=== PATIENT | male | born 1940 | race Caucasian/White ===

== ENCOUNTER 2017-03-05 10:29 | Inpatient (IN) ==
[2017-03-05] MEDS: Nicotine 21 MG PATCH.TD24 TD SCH (21:15)
[2017-03-06] MEDS: *HR* Enoxaparin 40 MG/0.4 ML SYRINGE SQ SCH (05:32)
[2017-03-06 05:46] LABS: INR 1.1; Prothrombin Time 11.9 Seconds (9.4-12.1)
[2017-03-06 05:47] LABS: Activated Partial Thrombo Time 32.6 Seconds (26.0-36.0)
[2017-03-06 05:49] LABS: Basophils % 0.3 %; Eosinophils % 0.2 %; Hemoglobin 15.3 g/dL (12.9-16.9); Immature Granulocytes % 0.5 % (0-4); Lymphocytes # 1.4 K/mcL (0.6-4.6); Lymphocytes % 10.6 %; Mean Corpuscular HGB Conc 34.8 g/dL (31.6-35.5); Mean Corpuscular Hemoglobin 28.1 pg (28.0-33.3); Mean Corpuscular Volume 80.7 fL (83.0-100.0); Mean Platelet Volume 10.9 fL (9.4-12.4); Monocytes # 0.8 K/mcL (0.0-1.3); Monocytes % 6.2 %; Neutrophils # 10.5 K/mcL (1.6-8.9); Platelet Count 148 K/mcL (140-400); Red Blood Count 5.45 M/mcL (4.19-5.50); Red Cell Distribution Width 14.1 % (11.5-14.5); Segmented Neutrophils % 82.2 %
[2017-03-06 05:52] LABS: BUN/Creatinine Ratio 19 (6-26); Blood Urea Nitrogen 21 mg/dL (8-26); Calcium 9.3 mg/dL (8.6-10.8); Carbon Dioxide 23 mEq/L (19-29); Chloride 105 mEq/L (98-109); Glucose 109 mg/dL (70-99); Osmolality,Calculated 290 (280-300); Potassium 4.2 mEq/L (3.5-4.5); Sodium 138 mEq/L (136-145); eGFR For African Americans > 60 (> 60); eGFR For Non-African Americans > 60 (> 60)
[2017-03-06] MEDS: NIFEdipine XL (24 HR) 30 MG TAB.ER.24 PO SCH (08:12)
[2017-03-06] MEDS: Aspirin 325 MG TABLET PO SCH (08:13)
[2017-03-06] MEDS: Nicotine 21 MG PATCH.TD24 TD SCH (08:17)
[2017-03-06] MEDS ORDERED: Nicotine 21 MG PATCH.TD24 TD SCH (09:00)
--- NOTE | 2017-03-06 11:52 | Internal Med History&Physical ---
Date of Encounter: 03/05/17 Time of Encounter: 11:50 Internal Medicine - H&P: HPI Chief complaint: Patient had ischemic CVA with left-sided weakness. Admitted From: Hospital to Hospital Transfer Plans for Post Hospital Care: Home History of present illness: Mr. Oswald is a 77 year old male Past Med Surg Social Fam HX - Past Medical History Medical history: hypertension Psychiatric history: no psych history - Social History Smoking Status: Current every day smoker Smokeless Tobacco Status: No Alcohol use: occasionally Drug use: none Internal Medicine - H&P: Meds Aspirin [Lo-Dose Aspirin EC] 81 mg PO DAILY 12/15/16 [History] hydrALAZINE [HydrALAZINE] 25 mg PO Q8HR #30 tablet 12/16/16 [Rx] Allergies hydrochlorothiazide Allergy (Verified 12/15/16 23:14) Fatigued dizzy All Systems PM: A 10-system review of systems was performed and is negative for pertinent findings except as documented above in the HPI. - Constitutional Vitals: Temp Pulse Resp BP Pulse Ox 98.6 F 96 16 190/81 96 03/06/17 07:00 03/06/17 07:00 03/06/17 07:00 03/06/17 07:00 03/06/17 07:00 - Head Head exam: Present: atraumatic, normal inspection, normocephalic - Neck Neck exam general surgery: Present: supple, trachea midline. Absent: lymphadenopathy - Respiratory Respiratory exam: Present: CTAB. Absent: accessory muscle use, rales, rhonchi, wheezes - Cardiovascular Cardiovascular exam: Present: RRR, +S1, +S2. Absent: diastolic murmur, gallop, rubs, systolic murmur - Neurological Exam Neurological exam: Present: abnormal gait, altered, CN II-XII intact, oriented X3, no focal deficits. Absent: pronater drift, facial droop, speech deficit Additional comments: Patient has virtually a flaccid left arm. He was able to stand for a minute unsupported. He is gazing to the right has trouble with focus on the left side. He has an obvious facial droop on the left side. She PT OT and TR evaluations. Internal Med - H&P Results - Labs CBC & Chem 7: 03/06/17 05:30 03/06/17 05:30 Labs: Short CBC 03/06/17 Range/Units 05:30 WBC 12.8 H (4.3-11.1) K/mcL Hgb 15.3 (12.9-16.9) g/dL Hct 44.0 (37.5-50.1) % Plt Count 148 (140-400) K/mcL Neutrophils # 10.5 H (1.6-8.9) K/mcL BMP 03/06/17 05:30 Sodium 138 Potassium 4.2 Chloride 105 Carbon Dioxide 23 BUN 21 Creatinine 1.10 Glucose 109 H Calcium 9.3
[2017-03-06] MEDS: MOM Conc 10 ML UD.LIQ PO PRN (19:38)
[2017-03-07] MEDS: *HR* Enoxaparin 40 MG/0.4 ML SYRINGE SQ SCH (05:56)
[2017-03-07] MEDS: Nicotine 21 MG PATCH.TD24 TD SCH (10:33)
[2017-03-07] MEDS: Aspirin 325 MG TABLET PO SCH (10:35)
[2017-03-07] MEDS: NIFEdipine XL (24 HR) 30 MG TAB.ER.24 PO SCH (11:46)
[2017-03-07] MEDS: Acetaminophen 325 MG TABLET PO PRN (14:56)
[2017-03-08] MEDS: *HR* Enoxaparin 40 MG/0.4 ML SYRINGE SQ SCH (05:11)
[2017-03-08] MEDS: Nicotine 21 MG PATCH.TD24 TD SCH (09:08)
[2017-03-08] MEDS: NIFEdipine XL (24 HR) 30 MG TAB.ER.24 PO SCH (09:08)
[2017-03-08] MEDS: Aspirin 325 MG TABLET PO SCH (09:08)
--- NOTE | 2017-03-08 09:16 | Internal Med Progress Note ---
Date of Encounter: 03/08/17 Time of Encounter: 09:14 - Assessment and plan (1) CVA (cerebral vascular accident) Current Visit: Yes Status: Acute Assessment and plan: 2 days after the patient arrived at this facility, staff noted worsening symptoms of this left-sided being flaccid. They have also noticed a change in his level of alertness. I reviewed the MRI from [facility]. It did show acute lacunar right basal ganglia. CT was repeated and showed an extension to the right temporal parietal lobe as interpreted by the radiologist. I discussed the finding with the and family members. I offered them the option to be transferred to a tertiary care facility for any neurological consultation. After lengthy discussion and consideration, because of the patient's age and risk factor, they opted to continue with comfort care measures only. They do not want any aggressive intervention. They want the patient to stay here and to continue with PT OT. Qualifiers: CVA mechanism: occlusion Precerebral and cerebral artery: posterior cerebral artery Laterality of affected vessel: right Qualified Code(s): I63.531 - Cerebral infarction due to unspecified occlusion or stenosis of right posterior cerebral artery (2) HTN (hypertension) Current Visit: Yes Status: Chronic Assessment and plan: BP 179/78 this morning. Qualifiers: Hypertension type: unspecified secondary hypertension Qualified Code(s): I15.9 - Secondary hypertension, unspecified; I15 - Secondary hypertension - Time Spent With Patient 25 - 35 minutes - Subjective Interval history: Feeling better today. Same left-sided weakness. No headache. No shortness of breath. No chest pain. No nausea vomiting abdominal pain. - Constitutional Vitals: Temp Pulse Resp BP Pulse Ox 98.1 F 79 16 178/98 96 03/08/17 06:58 03/08/17 06:58 03/08/17 06:58 03/08/17 07:07 03/08/17 06:58 General appearance: Present: A&O X 3, pleasant, no acute distress, answers questions appropriately - ENT Additional comments: Left sided facial droop noted - Respiratory Respiratory exam: Present: CTAB. Absent: accessory muscle use, rales, rhonchi, wheezes - Cardiovascular Cardiovascular exam: Present: RRR, +S1, +S2. Absent: diastolic murmur, gallop, rubs, systolic murmur - GI/Abdominal GI/Abdominal exam: Present: normal bowel sounds, soft, no peritoneal signs. Absent: distended, tenderness - Extremities Exam Extremities exam: Present: warm, radial pulses palpable and symetrical. Absent : calf tenderness, cyanotic, pedal edema - Expanded Neurological Exam Patient oriented to: Present: person, place Neuro motor strength exam: LUE: 2/1, RUE: 5, LLE: 2/1, RLE: 5 Internal Medicine: Result - Labs CBC & Chem 7: 03/06/17 05:30 03/06/17 05:30 - ABG Interpretation ABG results: PT/INR, D-dimer PT 11.9 Seconds (9.4-12.1) 03/06/17 05:30 - Impressions Impressions Head CT 03/07/17 09:00 IMPRESSION: 1. There are larger areas of poor parikh-white differentiation in the right middle cerebral artery vascular distribution since the previous MRI of the brain on 03/03/2017. These areas primarily include the right parietal lobe, right temporal lobe, and right insula. 2. There are evolving areas of encephalomalacia, corresponding to the acute infarcts noted on the previous MRI, involving the right basal ganglia, right parietal lobe, and posterior right periventricular white matter. 3. No evidence of acute intracranial hemorrhage. 4. 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 Results discussed with Dr. Don at 10:14 a.m. on 03/07/2017. D/ / 03/07/2017 10:42:05 Orlin Encinas MD / Rosalee Childress Interpreting Provider: Orlin Encinas MD Consult Discharge Plan - Plan Referrals: Edwina Lopez CNP [Primary Care Provider] -
[2017-03-08] MEDS: Artificial Tears SOLN 15 ML BOTTLE LEFT EYE SCH ×3 (12:45→19:36)
[2017-03-09] MEDS: *HR* Enoxaparin 40 MG/0.4 ML SYRINGE SQ SCH (05:49)
--- NOTE | 2017-03-09 08:15 | Internal Med Progress Note ---
Date of Encounter: 03/09/17 Time of Encounter: 08:13 - Assessment and plan (1) CVA (cerebral vascular accident) Current Visit: Yes Status: Acute Assessment and plan: Patient's working with therapy but there has been a progression of ischemic changes in the parietal temporal areas. Along with a lot of chronic changes. Qualifiers: CVA mechanism: occlusion Precerebral and cerebral artery: posterior cerebral artery Laterality of affected vessel: right Qualified Code(s): I63.531 - Cerebral infarction due to unspecified occlusion or stenosis of right posterior cerebral artery - Time Spent With Patient less than 15 minutes - Subjective Interval history: Patient's awake responsive. Speech is clear. The report of the CT noted changes since original MRI. Patient has severe malaise C and acute microvascular changes. There is a progression though in the parietotemporal areas. Prognosis rather poor considering they called the changes severe in terms of pre-existing chronic changes - Constitutional Vitals: Temp Pulse Resp BP Pulse Ox 98.7 F 81 18 198/130 96 03/09/17 07:38 03/09/17 07:38 03/09/17 07:38 03/09/17 07:38 03/09/17 07:38 General appearance: Present: A&O X 3, pleasant, no acute distress, answers questions appropriately - Head Head exam: Present: atraumatic, normal inspection, normocephalic - Neck Neck exam general surgery: Present: supple, trachea midline. Absent: lymphadenopathy - Respiratory Respiratory exam: Present: CTAB. Absent: accessory muscle use, rales, rhonchi, wheezes - Cardiovascular Cardiovascular exam: Present: RRR, +S1, +S2. Absent: diastolic murmur, gallop, rubs, systolic murmur Internal Medicine: Result - Labs CBC & Chem 7: 03/06/17 05:30 03/06/17 05:30 Labs: Lab is stable - ABG Interpretation ABG results: PT/INR, D-dimer PT 11.9 Seconds (9.4-12.1) 03/06/17 05:30 Consult Discharge Plan - Plan Referrals: Edwina Lopez, [employer]OOFER [Primary Care Provider] -
[2017-03-09] MEDS: NIFEdipine XL (24 HR) 30 MG TAB.ER.24 PO SCH (09:30)
[2017-03-09] MEDS: Aspirin 325 MG TABLET PO SCH (09:30)
[2017-03-09] MEDS: Artificial Tears SOLN 15 ML BOTTLE LEFT EYE SCH ×4 (09:30→19:20)
[2017-03-09] MEDS: Nicotine 21 MG PATCH.TD24 TD SCH (09:30)
[2017-03-10] MEDS: *HR* Enoxaparin 40 MG/0.4 ML SYRINGE SQ SCH (05:11)
[2017-03-10 05:39] LABS: Basophils % 0.4 %; Eosinophils # 0.2 K/mcL (0.0-0.6); Eosinophils % 1.6 %; Hematocrit 43.4 % (37.5-50.1); Immature Granulocytes % 0.3 % (0-4); Lymphocytes # 2.3 K/mcL (0.6-4.6); Lymphocytes % 20.3 %; Mean Corpuscular HGB Conc 34.6 g/dL (31.6-35.5); Mean Corpuscular Hemoglobin 28.1 pg (28.0-33.3); Mean Corpuscular Volume 81.3 fL (83.0-100.0); Monocytes # 1.1 K/mcL (0.0-1.3); Monocytes % 9.5 %; Platelet Count 150 K/mcL (140-400); Red Blood Count 5.34 M/mcL (4.19-5.50); Red Cell Distribution Width 14.1 % (11.5-14.5); Segmented Neutrophils % 67.9 %
[2017-03-10 05:40] LABS: INR 1.1; Prothrombin Time 12.1 Seconds (9.4-12.1)
[2017-03-10 05:42] LABS: Activated Partial Thrombo Time 36.4 Seconds (26.0-36.0)
[2017-03-10 05:44] LABS: Basophils # 0.1 K/mcL (0.0-0.2); Neutrophils # 7.7 K/mcL (1.6-8.9)
[2017-03-10 05:48] LABS: BUN/Creatinine Ratio 25 (6-26); Blood Urea Nitrogen 29 mg/dL (8-26); Calcium 9.6 mg/dL (8.6-10.8); Carbon Dioxide 23 mEq/L (19-29); Chloride 106 mEq/L (98-109); Glucose 96 mg/dL (70-99); Osmolality,Calculated 292 (280-300); Sodium 138 mEq/L (136-145); eGFR For African Americans > 60 (> 60); eGFR For Non-African Americans > 60 (> 60)
[2017-03-10] MEDS: NIFEdipine XL (24 HR) 30 MG TAB.ER.24 PO SCH (09:37)
[2017-03-10] MEDS: Acetaminophen 325 MG TABLET PO PRN (09:38)
[2017-03-10] MEDS: Aspirin 325 MG TABLET PO SCH (09:38)
[2017-03-10] MEDS: Nicotine 21 MG PATCH.TD24 TD SCH (09:39)
[2017-03-10] MEDS: Artificial Tears SOLN 15 ML BOTTLE LEFT EYE SCH ×4 (09:40→20:07)
--- NOTE | 2017-03-10 13:33 | Internal Med Progress Note ---
Date of Encounter: 03/10/17 Time of Encounter: 13:31 - Assessment and plan (1) CVA (cerebral vascular accident) Current Visit: Yes Status: Acute Assessment and plan: CVA with a lot of microvascular changes and what looks like an old CVA. There has been an extension since his original MRI. Qualifiers: CVA mechanism: occlusion Precerebral and cerebral artery: posterior cerebral artery Laterality of affected vessel: right Qualified Code(s): I63.531 - Cerebral infarction due to unspecified occlusion or stenosis of right posterior cerebral artery - Time Spent With Patient less than 15 minutes - Subjective Interval history: Patient denies cooperating when awake. Although he is sleepy good bit of time. It seems that we need to have scheduled rest periods. He does well if he has a rest period and then goes to a different type of therapy. I am also going to start him on Provigil. I am sure that the sleepiness is dependent upon his lack of cerebral circulation. He also has high diastolic blood pressures in the a.m. only. They seem to equal loudest the day goes on. We will start some Procardia 10 mg when diastolics above 90. - Constitutional Vitals: Temp Pulse Resp BP Pulse Ox 97.6 F 66 16 188/102 95 03/10/17 07:00 03/10/17 07:00 03/10/17 07:00 03/10/17 07:00 03/10/17 07:00 General appearance: Present: A&O X 3, pleasant, no acute distress, answers questions appropriately - Head Head exam: Present: atraumatic, normal inspection, normocephalic - Neck Neck exam general surgery: Present: supple, trachea midline. Absent: lymphadenopathy - Respiratory Respiratory exam: Present: CTAB. Absent: accessory muscle use, rales, rhonchi, wheezes - Cardiovascular Cardiovascular exam: Present: RRR, +S1, +S2. Absent: diastolic murmur, gallop, rubs, systolic murmur - Neurological Exam Neurological exam: Present: abnormal gait, CN II-XII intact, oriented X3, no focal deficits. Absent: pronater drift, facial droop (Patient has left facial droop left hemiplegia. Left upper extremity is almost flaccid. He has trouble turning to the left side and scan in the visual field there.), speech deficit Internal Medicine: Result - Labs CBC & Chem 7: 03/10/17 05:25 03/10/17 05:25 Labs: Short CBC 03/10/17 Range/Units 05:25 WBC 11.4 H (4.3-11.1) K/mcL Hgb 15.0 (12.9-16.9) g/dL Hct 43.4 (37.5-50.1) % Plt Count 150 (140-400) K/mcL Neutrophils # 7.7 (1.6-8.9) K/mcL BMP 03/10/17 05:25 Sodium 138 Potassium 5.0 H Chloride 106 Carbon Dioxide 23 BUN 29 H Creatinine 1.14 Glucose 96 Calcium 9.6 Lab looks stable - ABG Interpretation ABG results: PT/INR, D-dimer PT 12.1 Seconds (9.4-12.1) 03/10/17 05:25 Consult Discharge Plan - Plan Referrals: Edwina Lopez, SENIOR MECHANICAL DESIGN ENGINEER [Primary Care Provider] -
[2017-03-10] MEDS: NIFEdipine 10 MG CAPSULE PO SCH ×2 (17:58→20:08)
[2017-03-11] MEDS: *HR* Enoxaparin 40 MG/0.4 ML SYRINGE SQ SCH (05:25)
[2017-03-11] MEDS: NIFEdipine 10 MG CAPSULE PO SCH ×3 (05:27→17:37)
[2017-03-11] MEDS: Aspirin 325 MG TABLET PO SCH (08:52)
[2017-03-11] MEDS: Nicotine 21 MG PATCH.TD24 TD SCH (08:53)
[2017-03-11] MEDS: Artificial Tears SOLN 15 ML BOTTLE LEFT EYE SCH ×4 (08:53→19:25)
--- NOTE | 2017-03-11 12:19 | Internal Med Progress Note ---
Date of Encounter: 03/11/17 Time of Encounter: 12:16 - Assessment and plan (1) CVA (cerebral vascular accident) Current Visit: Yes Status: Acute Assessment and plan: Left-sided weakness seems to be improving with continuous PTOT. Working on safety, transfer, balance. Progressing with ADL task, increased impulsivity noted. Lower upper extremity strengthening, transfers. Left-sided awareness. s I. Qualifiers: CVA mechanism: occlusion Precerebral and cerebral artery: posterior cerebral artery Laterality of affected vessel: right Qualified Code(s): I63.531 - Cerebral infarction due to unspecified occlusion or stenosis of right posterior cerebral artery (2) HTN (hypertension) Current Visit: Yes Status: Chronic Assessment and plan: BP 179/78 this morning. Qualifiers: Hypertension type: unspecified secondary hypertension Qualified Code(s): I15.9 - Secondary hypertension, unspecified; I15 - Secondary hypertension - Time Spent With Patient less than 15 minutes - Subjective Interval history: Feeling better today. Same left-sided weakness. No headache. No shortness of breath. No chest pain. No nausea vomiting abdominal pain.Progressing - Constitutional Vitals: Temp Pulse Resp BP Pulse Ox 98.3 F 69 14 170/79 97 03/11/17 07:00 03/11/17 07:00 03/11/17 07:00 03/11/17 07:00 03/11/17 07:00 General appearance: Present: A&O X 3, pleasant, no acute distress, answers questions appropriately - Respiratory Respiratory exam: Present: CTAB. Absent: accessory muscle use, rales, rhonchi, wheezes - Cardiovascular Cardiovascular exam: Present: RRR, +S1, +S2. Absent: diastolic murmur, gallop, rubs, systolic murmur - GI/Abdominal GI/Abdominal exam: Present: normal bowel sounds, soft, no peritoneal signs. Absent: distended, tenderness - Extremities Exam Extremities exam: Present: warm, radial pulses palpable and symetrical. Absent : calf tenderness, cyanotic, pedal edema - Expanded Neurological Exam Patient oriented to: Present: person, place, time (Same left-sided weakness. Facial droop noted) Internal Medicine: Result - Labs CBC & Chem 7: 03/10/17 05:25 03/10/17 05:25 - ABG Interpretation ABG results: PT/INR, D-dimer PT 12.1 Seconds (9.4-12.1) 03/10/17 05:25 Consult Discharge Plan - Plan Referrals: Edwina Lopez, COUNSELING CENTER MANAGER [Primary Care Provider] -
[2017-03-12] MEDS: NIFEdipine 10 MG CAPSULE PO SCH ×4 (00:03→18:12)
[2017-03-12] MEDS: *HR* Enoxaparin 40 MG/0.4 ML SYRINGE SQ SCH (04:59)
[2017-03-12] MEDS: Acetaminophen 325 MG TABLET PO PRN (05:02)
[2017-03-12] MEDS ORDERED: cloNIDine HCl 0.1 MG TABLET PO ONE (05:20)
[2017-03-12] MEDS: Artificial Tears SOLN 15 ML BOTTLE LEFT EYE SCH ×4 (07:30→20:03)
[2017-03-12] MEDS: Aspirin 325 MG TABLET PO SCH (08:00)
[2017-03-12] MEDS: Nicotine 21 MG PATCH.TD24 TD SCH (08:00)
--- NOTE | 2017-03-12 13:40 | Internal Med Progress Note ---
Date of Encounter: 03/12/17 Time of Encounter: 13:38 - Assessment and plan (1) CVA (cerebral vascular accident) Current Visit: Yes Status: Acute Assessment and plan: Ocular PT OT TR and speech. Qualifiers: CVA mechanism: occlusion Precerebral and cerebral artery: posterior cerebral artery Laterality of affected vessel: right Qualified Code(s): I63.531 - Cerebral infarction due to unspecified occlusion or stenosis of right posterior cerebral artery - Time Spent With Patient less than 15 minutes - Subjective Interval history: Patient's support system reports him not sleeping well at night. states if he takes a half a melatonin 3 mg he sleeps well. But we will see Will follow him. Patient is getting his Provigil and is pretty alert when I talked to him. He answers appropriately. He still has left upper and lower extremity hemiplegia. Both are working with his arm and leg and also cognitive. Biggest problem skin him to look past the left midline - Constitutional Vitals: Temp Pulse Resp BP Pulse Ox 97.9 F 80 16 130/84 96 03/12/17 06:56 03/12/17 06:56 03/12/17 06:56 03/12/17 06:56 03/12/17 06:56 General appearance: Present: A&O X 3, pleasant, no acute distress, answers questions appropriately - Head Head exam: Present: atraumatic, normal inspection, normocephalic - Neck Neck exam general surgery: Present: supple, trachea midline. Absent: lymphadenopathy - Respiratory Respiratory exam: Present: CTAB. Absent: accessory muscle use, rales, rhonchi, wheezes - Neurological Exam Neurological exam: Present: abnormal gait, CN II-XII intact, motor sensory deficit, oriented X3, no focal deficits. Absent: pronater drift, facial droop, speech deficit Additional comments: The patient has left sided paresis. Flaccid actually the upper extremity also in the lower. They are attempting walking brace. He needs maximal assist to advance. Overall he is progressing cognitively seems intact Internal Medicine: Result - Labs CBC & Chem 7: 03/10/17 05:25 03/10/17 05:25 Labs: Lab appears stable - ABG Interpretation ABG results: PT/INR, D-dimer PT 12.1 Seconds (9.4-12.1) 06/12/17 05:25 Consult Discharge Plan - Plan Referrals: Edwina Lopez, TAVARES [Primary Care Provider] -
--- NOTE | 2017-03-12 14:33 | Physcial Medicine-Consult Note ---
Date of Encounter: 03/12/17 Time of Encounter: 14:21 Physical Medicine - AP (1) CVA (cerebral vascular accident) Status: Acute Assessment and plan: 1. Rehab: Mr. Oswald is suffering from left hemiplegia with left neglect. In addition to his left hemiplegia, he also has difficulty with coordinating movement in the right lower limb. He suffers from significant cognitive impairment. He will continue with intensive PT/OT/ST/TR to address gait, safety , ADLs, transfers and cognition. He is also suffering from fatigue and somnolence during the day, so he will continue with provigil. Nursing reports that he has not been sleeping at night. He will begin with ambien at . Estimated length of stay 4 weeks. Code(s): I63.9 - Cerebral infarction, unspecified SNOMED Code(s): 126359753 Physical Medicine - HPI - Data of Consult Consult date: 03/12/17 Requesting Physician: Lam Overton DO Primary Care Provider: Edwina Lopez CNP - Consult Narrative Reason for consult: CVA History of present illness: Mr. Oswald is a 77 year old male who presented to [facility] on 03/02/17 with complaints of acute onset of left sided weakness and facial droop. His brain MRI revealed acute lacunar infarcts, involving the right basal ganglia , right centrum semiovale and right parietal and occipital subcortical white matter. Patient was stabilized and subsequently transferred for inpatient rehabilitation. CC: Lam Overton DO Past Med Surg Social Fam HX - Past Medical History Medical history: hypertension Psychiatric history: no psych history - Social History Smoking Status: Current every day smoker Smokeless Tobacco Status: No Alcohol use: occasionally Drug use: none Current living situation: Home - Independent, With Family Activity Level: Independent ambulation, Very active Medications and Allergies Aspirin [Lo-Dose Aspirin EC] 81 mg PO DAILY 12/15/16 [History] hydrALAZINE [HydrALAZINE] 25 mg PO Q8HR #30 tablet 12/16/16 [Rx] Allergies hydrochlorothiazide Allergy (Verified 12/15/16 23:14) Fatigued dizzy - Constitutional Constitutional: Present: daytime sleepiness, lethargy - Cardiovascular Cardiovascular: Absent: chest pain, diaphoresis, dyspnea - Respiratory Respiratory: Absent: cough, dyspnea - Gastrointestinal Gastrointestinal: Present: change in bowel habits. Absent: abdominal pain - Genitourinary Genitourinary: urinary urgency - Musculoskeletal Musculoskeletal: Present: muscle weakness, numbness - Neurological Neurological: Present: abnormal gait, confusion, focal weakness, numbness - Psychiatric Psychiatric: Present: abnormal sleep pattern Physical Medicine - Exam - Constitutional Vitals: Temp Pulse Resp BP Pulse Ox 97.9 F 80 16 130/84 96 03/12/17 06:56 03/12/17 06:56 03/12/17 06:56 03/12/17 06:56 03/12/17 06:56 - Head Additional comments: Patient has a left facial droop. - Respiratory Respiratory exam: Present: CTAB - Cardiovascular Cardiovascular exam: Present: RRR - GI/Abdominal GI/Abdominal exam: Present: normal bowel sounds, soft. Absent: tenderness - Extremities Exam Extremities exam: Absent: calf tenderness - Neurological Exam Neurological exam: Present: alert Additional comments: Patient has a left neglect. He is able to attend to the left side with cues. Head will rotate to the left, he is unable to visually track to the left. Right upper and lower motor strength is 5/5. Left upper limb is flaccid. Left lower limb motor strength reveals hip adduction 2/4, hip abduction 2/5, trace KE. Tone is Maninder 1 in the left upper and lower limb. No clonus. No pain with PROM of the left upper limb, no pain with palpation of the AC joint or arm. No calf pain, no erythema or edema on exam. Physical Medicine - Results - Labs CBC & Chem 7: 03/10/17 05:25 03/10/17 05:25 - Impressions ITS Impressions Head CT 03/07/17 09:00 IMPRESSION: 1. There are larger areas of poor parikh-white differentiation in the right middle cerebral artery vascular distribution since the previous MRI of the brain on 03/03/2017. These areas primarily include the right parietal lobe, right temporal lobe, and right insula. 2. There are evolving areas of encephalomalacia, corresponding to the acute infarcts noted on the previous MRI, involving the right basal ganglia, right parietal lobe, and posterior right periventricular white matter. 3. No evidence of acute intracranial hemorrhage. 4. 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 Results discussed with Dr. Don at 10:14 a.m. on 03/07/2017. D/ / 03/07/2017 10:42:05 Orlin Encinas MD / Rosalee Childress Interpreting Provider: Orlin Encinas MD Consult Discharge Plan - Plan Referrals: Edwina Lopez, TAVARES [Primary Care Provider] -
--- NOTE | 2017-03-12 16:18 | Psychological Evaluation ---
Date of Encounter: 03/12/17 Time of Encounter: 11:30 History of Present Illness History of present illness: Mr. Oswald is a 77 year old male admitted to [facility] for inpatient rehabilitation services following an ischemic stroke with resultant left-side weakness. Past Medical History Medical history: Significant for HTN. - Psychiatric History Additional Psychiatric History: Mr. Oswald stated that he saw a counselor/therapist once at the request of a a girlfriend. Mr. Martinez stated that his girlfriend at the time had accused him of being an alcoholic and had requested that he see a therapist. The therapist reportedly told Mr. Oswald that he was not an alcoholic. There is no history of psychiatric or mental health treatment. There is no history of suicidal ideation, intention, plan or past attempt. Home Medications and Allergies Aspirin [Lo-Dose Aspirin EC] 81 mg PO DAILY 12/15/16 [History] hydrALAZINE [HydrALAZINE] 25 mg PO Q8HR #30 tablet 12/16/16 [Rx] Allergies hydrochlorothiazide Allergy (Verified 12/15/16 23:14) Fatigued dizzy Social History - Social History Social History: Mr. Oswald and his fourth have been for 30 years. He has 3 children (two daughters and one son) but had initially stated that he has "5" children. He is a member of the [employer] and spend his leisure time riding motorcycles (He rode a 3-wheeled trike). His social support system consists of his and a friend (Henrry). Prior to his stroke, Mr. Oswald was active and was refurbishing an old house. - Tobacco Use Smoking Status: Current every day smoker - Alcohol Use Alcohol Use: occasionally (Mr. Oswald described himself as a "heavy drinker" in the past but stated that he now drinks beer socially. He typically drinks "one bottle of beer" daily. ) - Drug Use Drug Use: none Cognitive/Emotional Assessment - Cognitive Ability Additional Findings: Mr. Oswald was alert, attentive and oriented for person and place. He gave the date as March 14 but knew the year. His speech was fluent but he spoke in a soft , low tone of voice. He tended to answer questions slowly without elaboration and to look to the right. (He has significant left neglect). He performed within the normal range on a measure of immediate attention, sentence repetition , confrontational naming, mental arithmetic, verbal reasoning, social judgment and auditory comprehension. He scored within the mildly-moderately impaired range on a measure of delayed verbal recall. He had problems with retrieval of new information but his performance improved with category cueing. Mr. Oswald did not appear aware of his cognitive strengths or deficits. - Emotional Status Additional Findings: Mr. Oswald was pleasant and cooperative. He reported that his mood has "improved immensely". He presented with flat affect. Mood was somber. He denied any pain initially but when his asked him again, he reported that he has been having some low back pain. Mr. Oswald did not display signs of low frustration, irritability or sadness. 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 Procedures - Session Time Session Start Time: 11:30 Session Stop Time: 12:00
[2017-03-13] MEDS: *HR* Enoxaparin 40 MG/0.4 ML SYRINGE SQ SCH (05:03)
[2017-03-13] MEDS: Nicotine 21 MG PATCH.TD24 TD SCH (08:19)
[2017-03-13] MEDS: Artificial Tears SOLN 15 ML BOTTLE LEFT EYE SCH ×4 (08:19→20:15)
[2017-03-13] MEDS: Aspirin 325 MG TABLET PO SCH (08:19)
--- NOTE | 2017-03-13 15:22 | Internal Med Progress Note ---
Date of Encounter: 03/13/17 Time of Encounter: 15:20 - Assessment and plan (1) CVA (cerebral vascular accident) Current Visit: Yes Status: Acute Assessment and plan: Acute with all modalities of therapy Qualifiers: CVA mechanism: occlusion Precerebral and cerebral artery: posterior cerebral artery Laterality of affected vessel: right Qualified Code(s): I63.531 - Cerebral infarction due to unspecified occlusion or stenosis of right posterior cerebral artery - Time Spent With Patient less than 15 minutes - Subjective Interval history: Mr. Nance working with all of therapists. states he sleeping little better. Resting overall not much significant improvement physically with doing well - Constitutional Vitals: Temp Pulse Resp BP Pulse Ox 98.4 F 67 16 177/91 96 03/13/17 07:06 03/13/17 07:06 03/13/17 07:06 03/13/17 07:06 03/13/17 07:06 General appearance: Present: A&O X 3, pleasant, no acute distress, answers questions appropriately - Head Head exam: Present: atraumatic, normocephalic - Neck Neck exam general surgery: Present: supple, trachea midline. Absent: lymphadenopathy - Respiratory Respiratory exam: Present: CTAB. Absent: accessory muscle use, rales, rhonchi, wheezes - Cardiovascular Cardiovascular exam: Present: RRR, +S1, +S2. Absent: diastolic murmur, gallop, rubs, systolic murmur Internal Medicine: Result - Labs CBC & Chem 7: 03/10/17 05:25 03/10/17 05:25 Labs: Lab is good - ABG Interpretation ABG results: PT/INR, D-dimer PT 12.1 Seconds (9.4-12.1) 03/10/17 05:25 Consult Discharge Plan - Plan Referrals: Edwina Lopez, PROFESSOR OF MEDICINE [Primary Care Provider] -
[2017-03-14] MEDS: *HR* Enoxaparin 40 MG/0.4 ML SYRINGE SQ SCH (04:44)
[2017-03-14] MEDS: Artificial Tears SOLN 15 ML BOTTLE LEFT EYE SCH ×4 (08:51→21:05)
[2017-03-14] MEDS: Aspirin 325 MG TABLET PO SCH (08:51)
[2017-03-14] MEDS: Nicotine 21 MG PATCH.TD24 TD SCH (08:51)
[2017-03-14] MEDS ORDERED: NIFEdipine 10 MG CAPSULE PO ONE (12:05)
[2017-03-14] MEDS ORDERED: NIFEdipine XL (24 HR) 60 MG TAB.ER.24 PO SCH ×2 (12:15→21:00)
--- NOTE | 2017-03-14 13:52 | Internal Med Progress Note ---
Date of Encounter: 03/14/17 Time of Encounter: 13:50 - Assessment and plan (1) CVA (cerebral vascular accident) Current Visit: Yes Status: Acute Assessment and plan: Patient seen PT OT TR and speech Qualifiers: CVA mechanism: occlusion Precerebral and cerebral artery: posterior cerebral artery Laterality of affected vessel: right Qualified Code(s): I63.531 - Cerebral infarction due to unspecified occlusion or stenosis of right posterior cerebral artery - Time Spent With Patient less than 15 minutes - Subjective Interval history: Patient continues to have high blood pressures in the a.m. when I checked the Procardia schedule I found out that the pharmacy had inadvertently DC'd the medication. Said not been getting either this 60 Exsel or the 10 in the morning if diastolic pressures were elevated. This is all been corrected now. - Constitutional Vitals: Temp Pulse Resp BP Pulse Ox 98.7 F 97 13 135/79 97 03/14/17 07:00 03/14/17 12:20 03/14/17 07:00 03/14/17 12:20 03/14/17 07:00 General appearance: Present: A&O X 3, pleasant, no acute distress, answers questions appropriately - Head Head exam: Present: atraumatic, normal inspection, normocephalic - Neck Neck exam general surgery: Present: supple, trachea midline. Absent: lymphadenopathy - Respiratory Respiratory exam: Present: CTAB. Absent: accessory muscle use, rales, rhonchi, wheezes - Cardiovascular Cardiovascular exam: Present: RRR, +S1, +S2. Absent: diastolic murmur, gallop, rubs, systolic murmur - GI/Abdominal GI/Abdominal exam: Present: normal bowel sounds, soft, no peritoneal signs. Absent: distended, tenderness - Neurological Exam Neurological exam: Present: abnormal gait, CN II-XII intact, oriented X3, no focal deficits. Absent: pronater drift, facial droop, speech deficit Additional comments: Patient still has left facial droop along with a left hemiplegia. Internal Medicine: Result - Labs CBC & Chem 7: 03/10/17 05:25 03/10/17 05:25 Labs: Labs 5 - ABG Interpretation ABG results: PT/INR, D-dimer PT 12.1 Seconds (9.4-12.1) 03/10/17 05:25 Consult Discharge Plan - Plan Referrals: Edwina Lopez, TAVARES [Primary Care Provider] -
[2017-03-14] MEDS: NIFEdipine XL (24 HR) 30 MG TAB.ER.24 PO SCH (21:07)
[2017-03-15] MEDS: *HR* Enoxaparin 40 MG/0.4 ML SYRINGE SQ SCH (04:54)
[2017-03-15] MEDS: Nicotine 21 MG PATCH.TD24 TD SCH (08:28)
[2017-03-15] MEDS: Aspirin 325 MG TABLET PO SCH (08:28)
[2017-03-15] MEDS: Artificial Tears SOLN 15 ML BOTTLE LEFT EYE SCH ×4 (08:29→20:46)
--- NOTE | 2017-03-15 09:01 | Internal Med Progress Note ---
Date of Encounter: 03/15/17 Time of Encounter: 08:59 - Assessment and plan (1) CVA (cerebral vascular accident) Current Visit: Yes Status: Acute Assessment and plan: left hemiplegia with left neglect. Also has difficulty with coordinating movement in the right lower limb. He suffers from significant cognitive impairment. He will continue with intensive PT/OT/ST/TR to address gait, safety , ADLs, transfers and cognition. He is also suffering from fatigue and somnolence during the day, so he will continue with provigil. Qualifiers: CVA mechanism: occlusion Precerebral and cerebral artery: posterior cerebral artery Laterality of affected vessel: right Qualified Code(s): I63.531 - Cerebral infarction due to unspecified occlusion or stenosis of right posterior cerebral artery (2) HTN (hypertension) Current Visit: Yes Status: Chronic Qualifiers: Hypertension type: unspecified secondary hypertension Qualified Code(s): I15.9 - Secondary hypertension, unspecified; I15 - Secondary hypertension - Subjective Interval history: Feeling better today. Sleepy in the past 2-3 days. Same left-sided weakness. No headache. No shortness of breath. No chest pain. No nausea vomiting abdominal pain.Progressing - Constitutional Vitals: Temp Pulse Resp BP Pulse Ox 98.3 F 83 18 112/75 94 03/15/17 08:00 03/15/17 08:00 03/15/17 08:00 03/15/17 08:00 03/15/17 08:00 General appearance: Present: A&O X 3, pleasant, no acute distress, answers questions appropriately - Respiratory Respiratory exam: Present: CTAB. Absent: accessory muscle use, rales, rhonchi, wheezes - Cardiovascular Cardiovascular exam: Present: RRR, +S1, +S2. Absent: diastolic murmur, gallop, rubs, systolic murmur - GI/Abdominal GI/Abdominal exam: Present: normal bowel sounds, soft, no peritoneal signs. Absent: distended, tenderness - Neurological Exam Additional comments: Left-sided neglect. Right sided paralysis Internal Medicine: Result - Labs CBC & Chem 7: 03/10/17 05:25 03/10/17 05:25 - ABG Interpretation ABG results: PT/INR, D-dimer PT 12.1 Seconds (9.4-12.1) 03/10/17 05:25 Consult Discharge Plan - Plan Referrals: Edwina Lopez, TAVARES [Primary Care Provider] -
[2017-03-15] MEDS: NIFEdipine XL (24 HR) 30 MG TAB.ER.24 PO SCH (20:45)
[2017-03-16] MEDS: *HR* Enoxaparin 40 MG/0.4 ML SYRINGE SQ SCH (06:00)
[2017-03-16] MEDS: Nicotine 21 MG PATCH.TD24 TD SCH (09:27)
[2017-03-16] MEDS: Artificial Tears SOLN 15 ML BOTTLE LEFT EYE SCH ×5 (09:28→20:56)
[2017-03-16] MEDS: Aspirin 325 MG TABLET PO SCH (09:28)
[2017-03-16 14:37] LABS: Bilirubin,Urine Negative (Negative); Clarity,Urine Cloudy (Clear); Color,Urine Yellow (Yellow); Glucose,Urine (UA) Normal (Normal)
[2017-03-16 14:38] LABS: Blood,Urine Moderate (Negative); Ketones,Urine Negative (Negative); Leukocyte Esterase,Urine Large (Negative); Nitrite,Urine Positive (Negative); PH,Urine 5.5 pH Units (5.0-8.0); Protein,Urine 100 mg/dL (Neg-Trace); Specific Gravity,Urine 1.015 (1.010-1.025)
[2017-03-16 14:39] LABS: Bacteria,Urine Many per hpf (None-Few); RBC,Urine 50-100 per hpf (0-3); WBC,Urine TNTC per hpf (0-3)
[2017-03-16] MEDS: NIFEdipine XL (24 HR) 30 MG TAB.ER.24 PO SCH (20:52)
[2017-03-17 05:42] LABS: INR 1.1; Prothrombin Time 12.3 Seconds (9.4-12.1)
[2017-03-17 05:43] LABS: Basophils % 0.3 %; Eosinophils # 0.1 K/mcL (0.0-0.6); Eosinophils % 0.8 %; Hematocrit 40.8 % (37.5-50.1); Hemoglobin 14.4 g/dL (12.9-16.9); Immature Granulocytes % 0.5 % (0-4); Lymphocytes # 1.1 K/mcL (0.6-4.6); Lymphocytes % 9.2 %; Mean Corpuscular HGB Conc 35.3 g/dL (31.6-35.5); Mean Corpuscular Hemoglobin 28.3 pg (28.0-33.3); Mean Corpuscular Volume 80.3 fL (83.0-100.0); Mean Platelet Volume 10.9 fL (9.4-12.4); Monocytes # 1.1 K/mcL (0.0-1.3); Monocytes % 9.4 %; Neutrophils # 9.1 K/mcL (1.6-8.9); Platelet Count 195 K/mcL (140-400); Red Blood Count 5.08 M/mcL (4.19-5.50); Red Cell Distribution Width 13.8 % (11.5-14.5); Segmented Neutrophils % 79.8 %
[2017-03-17 05:45] LABS: Activated Partial Thrombo Time 32.9 Seconds (26.0-36.0)
[2017-03-17 05:51] LABS: BUN/Creatinine Ratio 20 (6-26); Blood Urea Nitrogen 21 mg/dL (8-26); Calcium 9.4 mg/dL (8.6-10.8); Carbon Dioxide 24 mEq/L (19-29); Chloride 101 mEq/L (98-109); Glucose 103 mg/dL (70-99); Osmolality,Calculated 283 (280-300); Potassium 4.8 mEq/L (3.5-4.5); Sodium 135 mEq/L (136-145); eGFR For African Americans > 60 (> 60); eGFR For Non-African Americans > 60 (> 60)
[2017-03-17] MEDS: *HR* Enoxaparin 40 MG/0.4 ML SYRINGE SQ SCH (06:34)
[2017-03-17] MEDS: Nicotine 21 MG PATCH.TD24 TD SCH (08:55)
[2017-03-17] MEDS: Aspirin 325 MG TABLET PO SCH (08:55)
[2017-03-17] MEDS: Artificial Tears SOLN 15 ML BOTTLE LEFT EYE SCH ×4 (08:56→20:57)
--- NOTE | 2017-03-17 14:19 | Internal Med Progress Note ---
Date of Encounter: 03/17/17 Time of Encounter: 14:18 - Assessment and plan (1) CVA (cerebral vascular accident) Current Visit: Yes Status: Acute Qualifiers: CVA mechanism: occlusion Precerebral and cerebral artery: posterior cerebral artery Laterality of affected vessel: right Qualified Code(s): I63.531 - Cerebral infarction due to unspecified occlusion or stenosis of right posterior cerebral artery - Subjective Interval history: Patient continues to have high blood pressures in the a.m. when I checked the [employer] schedule I found out that the pharmacy had inadvertently DC'd the medication. Said not been getting either this 60 Exsel or the 10 in the morning if diastolic pressures were elevated. This is all been corrected now. - Constitutional Vitals: Temp Pulse Resp BP Pulse Ox 99.3 F 88 18 132/69 96 03/17/17 08:26 03/17/17 08:26 03/17/17 08:26 03/17/17 08:26 03/17/17 08:26 General appearance: Present: A&O X 3, pleasant, no acute distress, answers questions appropriately - Head Head exam: Present: atraumatic, normal inspection, normocephalic - Neck Neck exam general surgery: Present: supple, trachea midline. Absent: lymphadenopathy - Respiratory Respiratory exam: Present: CTAB. Absent: accessory muscle use, rales, rhonchi, wheezes - Cardiovascular Cardiovascular exam: Present: RRR, +S1, +S2. Absent: diastolic murmur, gallop, rubs, systolic murmur - Neurological Exam Neurological exam: Present: CN II-XII intact, motor sensory deficit, oriented X3 , no focal deficits. Absent: pronater drift, facial droop, speech deficit Additional comments: Left facial droop and left flaccid paralysis. Internal Medicine: Result - Labs CBC & Chem 7: 03/17/17 05:25 03/17/17 05:25 Labs: Short CBC 03/17/17 Range/Units 05:25 WBC 11.4 H (4.3-11.1) K/mcL Hgb 14.4 (12.9-16.9) g/dL Hct 40.8 (37.5-50.1) % Plt Count 195 (140-400) K/mcL Neutrophils # 9.1 H (1.6-8.9) K/mcL BMP 03/17/17 05:25 Sodium 135 L Potassium 4.8 H Chloride 101 Carbon Dioxide 24 BUN 21 Creatinine 1.03 Glucose 103 H Calcium 9.4 Urine 03/16/17 Range/Units 14:25 Urine Color Yellow (Yellow) Urine Clarity Cloudy A (Clear) Urine pH 5.5 (5.0-8.0) pH Units Ur Specific [place] 1.015 (1.010-1.025) Urine Protein 100 H (Neg-Trace) mg/dL Urine Glucose (UA) Normal (Normal) mg/dL - ABG Interpretation ABG results: PT/INR, D-dimer PT 12.3 Seconds (9.4-12.1) H 03/17/17 05:25 Consult Discharge Plan - Plan Referrals: Edwina Lopez, TAVARES [Primary Care Provider] -
[2017-03-17] MEDS: NIFEdipine XL (24 HR) 30 MG TAB.ER.24 PO SCH (20:51)
[2017-03-18] MEDS: *HR* Enoxaparin 40 MG/0.4 ML SYRINGE SQ SCH (05:10)
[2017-03-18] MEDS: Aspirin 325 MG TABLET PO SCH (09:07)
[2017-03-18] MEDS: Artificial Tears SOLN 15 ML BOTTLE LEFT EYE SCH ×4 (09:07→20:06)
[2017-03-18] MEDS: Nicotine 21 MG PATCH.TD24 TD SCH (09:07)
--- NOTE | 2017-03-18 13:44 | Internal Med Progress Note ---
Date of Encounter: 03/18/17 Time of Encounter: 13:42 - Assessment and plan (1) CVA (cerebral vascular accident) Current Visit: Yes Status: Acute Assessment and plan: As I said patient looks better is not as sleepy and responding to therapy very well Qualifiers: CVA mechanism: occlusion Precerebral and cerebral artery: posterior cerebral artery Laterality of affected vessel: right Qualified Code(s): I63.531 - Cerebral infarction due to unspecified occlusion or stenosis of right posterior cerebral artery - Time Spent With Patient less than 15 minutes - Subjective Interval history: Blood pressures are much better controlled I think the patient looks good he is not a sleepy and responding much better to therapy - Constitutional Vitals: Temp Pulse Resp BP Pulse Ox 99.5 F 88 18 122/88 97 03/18/17 08:34 03/18/17 08:34 03/18/17 08:34 03/18/17 08:34 03/18/17 08:34 General appearance: Present: A&O X 3, pleasant, no acute distress, answers questions appropriately - Head Head exam: Present: atraumatic, normal inspection, normocephalic - Neck Neck exam general surgery: Present: supple, trachea midline. Absent: lymphadenopathy - Respiratory Respiratory exam: Present: CTAB. Absent: accessory muscle use, rales, rhonchi, wheezes - Cardiovascular Cardiovascular exam: Present: RRR, +S1, +S2. Absent: diastolic murmur, gallop, rubs, systolic murmur Internal Medicine: Result - Labs CBC & Chem 7: 03/17/17 05:25 03/17/17 05:25 Labs: Lab state - ABG Interpretation ABG results: PT/INR, D-dimer PT 12.3 Seconds (9.4-12.1) H 03/17/17 05:25 Consult Discharge Plan - Plan Referrals: Edwina Lopez [employer]PERVISOR [employer] [Primary Care Provider] -
[2017-03-18] MEDS: NIFEdipine XL (24 HR) 30 MG TAB.ER.24 PO SCH (19:58)
[2017-03-19] MEDS: *HR* Enoxaparin 40 MG/0.4 ML SYRINGE SQ SCH (05:28)
[2017-03-19] MEDS: MOM Conc 10 ML UD.LIQ PO PRN (09:04)
[2017-03-19] MEDS: Aspirin 325 MG TABLET PO SCH (09:04)
[2017-03-19] MEDS: Nicotine 21 MG PATCH.TD24 TD SCH (09:05)
[2017-03-19] MEDS: Acetaminophen 325 MG TABLET PO PRN (09:05)
[2017-03-19] MEDS: Artificial Tears SOLN 15 ML BOTTLE LEFT EYE SCH ×4 (09:05→20:25)
[2017-03-19] MEDS: NIFEdipine XL (24 HR) 30 MG TAB.ER.24 PO SCH (20:25)
[2017-03-20] MEDS: Nicotine 21 MG PATCH.TD24 TD SCH (08:40)
[2017-03-20] MEDS: Artificial Tears SOLN 15 ML BOTTLE LEFT EYE SCH ×4 (08:41→21:19)
[2017-03-20] MEDS: Aspirin 325 MG TABLET PO SCH (08:41)
[2017-03-20] MEDS: NIFEdipine XL (24 HR) 30 MG TAB.ER.24 PO SCH (21:19)
[2017-03-20] MEDS: Baclofen 10 MG TABLET PO SCH (21:19)
[2017-03-21] MEDS: *HR* Enoxaparin 40 MG/0.4 ML SYRINGE SQ SCH (06:12)
[2017-03-21] MEDS: Nicotine 21 MG PATCH.TD24 TD SCH (08:23)
[2017-03-21] MEDS: Baclofen 10 MG TABLET PO SCH ×3 (08:23→21:19)
[2017-03-21] MEDS: Aspirin 325 MG TABLET PO SCH (08:23)
[2017-03-21] MEDS: Acetaminophen 325 MG TABLET PO PRN (08:30)
[2017-03-21] MEDS: Artificial Tears SOLN 15 ML BOTTLE LEFT EYE SCH ×4 (08:34→21:19)
--- NOTE | 2017-03-21 14:27 | Internal Med Progress Note ---
Date of Encounter: 03/21/17 Time of Encounter: 14:25 - Assessment and plan (1) CVA (cerebral vascular accident) Current Visit: Yes Status: Acute Assessment and plan: No working with her therapist today showing probable Qualifiers: CVA mechanism: occlusion Precerebral and cerebral artery: posterior cerebral artery Laterality of affected vessel: right Qualified Code(s): I63.531 - Cerebral infarction due to unspecified occlusion or stenosis of right posterior cerebral artery - Time Spent With Patient less than 15 minutes - Subjective Interval history: Blood pressures are much better controlled I think the patient looks good he is not a sleepy and responding much better to therapy. Patient is finally shown progress. He has some movement in his left leg in addition to that he is willing himself around the unit he is looking to the left moring generally improved - Constitutional Vitals: Temp Pulse Resp BP Pulse Ox 98.2 F 69 16 135/75 93 03/21/17 06:48 03/21/17 06:48 03/21/17 06:48 03/21/17 06:48 03/21/17 06:48 General appearance: Present: A&O X 3, pleasant, no acute distress, answers questions appropriately - Head Head exam: Present: atraumatic, normocephalic - Neck Neck exam general surgery: Present: supple, trachea midline. Absent: lymphadenopathy - Respiratory Respiratory exam: Present: CTAB. Absent: accessory muscle use, rales, rhonchi, wheezes - Cardiovascular Cardiovascular exam: Present: RRR, +S1, +S2. Absent: diastolic murmur, gallop, rubs, systolic murmur Internal Medicine: Result - Labs CBC & Chem 7: 03/17/17 05:25 03/17/17 05:25 Labs: Lab good - ABG Interpretation ABG results: PT/INR, D-dimer PT 12.3 Seconds (9.4-12.1) H 03/17/17 05:25 Consult Discharge Plan - Plan Referrals: Edwina Lopez CNP [Primary Care Provider] -
[2017-03-21] MEDS: NIFEdipine XL (24 HR) 30 MG TAB.ER.24 PO SCH (21:19)
[2017-03-22] MEDS: *HR* Enoxaparin 40 MG/0.4 ML SYRINGE SQ SCH (06:02)
[2017-03-22] MEDS: Artificial Tears SOLN 15 ML BOTTLE LEFT EYE SCH ×4 (08:26→20:08)
[2017-03-22] MEDS: Baclofen 10 MG TABLET PO SCH ×3 (08:32→20:06)
[2017-03-22] MEDS: Nicotine 21 MG PATCH.TD24 TD SCH (08:33)
[2017-03-22] MEDS: Aspirin 325 MG TABLET PO SCH (08:33)
--- NOTE | 2017-03-22 11:56 | Internal Med Progress Note ---
Date of Encounter: 03/22/17 Time of Encounter: 11:54 - Assessment and plan (1) CVA (cerebral vascular accident) Current Visit: Yes Status: Acute Assessment and plan: Asians working with everyone and actually really showing improvement with this past week Qualifiers: CVA mechanism: occlusion Precerebral and cerebral artery: posterior cerebral artery Laterality of affected vessel: right Qualified Code(s): I63.531 - Cerebral infarction due to unspecified occlusion or stenosis of right posterior cerebral artery - Time Spent With Patient less than 15 minutes - Subjective Interval history: Agents resting quietly easily awakened and denied needing anything at this time. He did warn yesterday we will monitor - Constitutional Vitals: Temp Pulse Resp BP Pulse Ox 98.3 F 78 16 189/97 95 03/22/17 06:52 03/22/17 06:52 03/22/17 06:52 03/22/17 06:52 03/22/17 06:52 General appearance: Present: A&O X 3, pleasant, no acute distress, answers questions appropriately - Head Head exam: Present: atraumatic, normal inspection, normocephalic - Neck Neck exam general surgery: Present: supple, trachea midline. Absent: lymphadenopathy - Respiratory Respiratory exam: Present: CTAB. Absent: accessory muscle use, rales, rhonchi, wheezes - Cardiovascular Cardiovascular exam: Present: RRR, +S1, +S2. Absent: diastolic murmur, gallop, rubs, systolic murmur Internal Medicine: Result - Labs CBC & Chem 7: 03/17/17 05:25 03/17/17 05:25 Labs: Lab is stable - ABG Interpretation ABG results: PT/INR, D-dimer PT 12.3 Seconds (9.4-12.1) H 03/17/17 05:25 Consult Discharge Plan - Plan Referrals: Edwina Lopez, BODY CLEANER [Primary Care Provider] -
[2017-03-22] MEDS ORDERED: NIFEdipine 10 MG CAPSULE PO PRN (12:18)
[2017-03-22] MEDS: NIFEdipine XL (24 HR) 30 MG TAB.ER.24 PO SCH (20:04)
[2017-03-23] MEDS: *HR* Enoxaparin 40 MG/0.4 ML SYRINGE SQ SCH (04:18)
[2017-03-23] MEDS: Baclofen 10 MG TABLET PO SCH ×3 (08:14→20:26)
[2017-03-23] MEDS: Nicotine 21 MG PATCH.TD24 TD SCH (08:14)
[2017-03-23] MEDS: Aspirin 325 MG TABLET PO SCH (08:15)
[2017-03-23] MEDS: Artificial Tears SOLN 15 ML BOTTLE LEFT EYE SCH ×4 (09:44→20:30)
--- NOTE | 2017-03-23 11:20 | Internal Med Progress Note ---
Date of Encounter: 03/23/17 Time of Encounter: 11:18 - Assessment and plan (1) CVA (cerebral vascular accident) Current Visit: Yes Status: Acute Assessment and plan: He is here for CVA with speech PT OT and TR. Qualifiers: CVA mechanism: occlusion Precerebral and cerebral artery: posterior cerebral artery Laterality of affected vessel: right Qualified Code(s): I63.531 - Cerebral infarction due to unspecified occlusion or stenosis of right posterior cerebral artery - Time Spent With Patient less than 15 minutes - Subjective Interval history: Mr. Oswald is doing very well. Attitudes better movements better opts patient is better a referral please with his current problem - Constitutional Vitals: Temp Pulse Resp BP Pulse Ox 97.9 F 61 16 151/83 98 03/23/17 07:00 03/23/17 07:00 03/23/17 07:00 03/23/17 07:00 03/23/17 07:00 General appearance: Present: A&O X 3, pleasant, no acute distress, answers questions appropriately - Head Head exam: Present: atraumatic, normocephalic - Respiratory Respiratory exam: Present: CTAB. Absent: accessory muscle use, rales, rhonchi, wheezes - Cardiovascular Cardiovascular exam: Present: RRR, +S1, +S2. Absent: diastolic murmur, gallop, rubs, systolic murmur Internal Medicine: Result - Labs CBC & Chem 7: 03/17/17 05:25 03/17/17 05:25 Labs: Lab is stable - ABG Interpretation ABG results: PT/INR, D-dimer PT 12.3 Seconds (9.4-12.1) H 03/17/17 05:25 Consult Discharge Plan - Plan Referrals: Edwina Lopez, DEBLOCKER [Primary Care Provider] -
[2017-03-23] MEDS: NIFEdipine XL (24 HR) 30 MG TAB.ER.24 PO SCH (20:28)
[2017-03-24] MEDS: *HR* Enoxaparin 40 MG/0.4 ML SYRINGE SQ SCH (05:30)
[2017-03-24 05:40] LABS: INR 1.1; Prothrombin Time 11.8 Seconds (9.4-12.1)
[2017-03-24 05:42] LABS: Activated Partial Thrombo Time 31.4 Seconds (26.0-36.0)
[2017-03-24 05:43] LABS: Basophils # 0.1 K/mcL (0.0-0.2); Basophils % 0.7 %; Eosinophils # 0.4 K/mcL (0.0-0.6); Eosinophils % 3.5 %; Hematocrit 41.5 % (37.5-50.1); Hemoglobin 14.3 g/dL (12.9-16.9); Immature Granulocytes % 0.5 % (0-4); Lymphocytes # 2.1 K/mcL (0.6-4.6); Lymphocytes % 21.3 %; Mean Corpuscular HGB Conc 34.5 g/dL (31.6-35.5); Mean Corpuscular Hemoglobin 27.8 pg (28.0-33.3); Mean Corpuscular Volume 80.7 fL (83.0-100.0); Mean Platelet Volume 10.3 fL (9.4-12.4); Monocytes # 0.8 K/mcL (0.0-1.3); Monocytes % 7.7 %; Neutrophils # 6.6 K/mcL (1.6-8.9); Platelet Count 263 K/mcL (140-400); Red Blood Count 5.14 M/mcL (4.19-5.50); Red Cell Distribution Width 13.8 % (11.5-14.5); Segmented Neutrophils % 66.3 %
[2017-03-24 05:52] LABS: BUN/Creatinine Ratio 22 (6-26); Blood Urea Nitrogen 22 mg/dL (8-26); Calcium 9.4 mg/dL (8.6-10.8); Carbon Dioxide 26 mEq/L (19-29); Chloride 106 mEq/L (98-109); Glucose 90 mg/dL (70-99); Osmolality,Calculated 293 (280-300); Potassium 4.1 mEq/L (3.5-4.5); Sodium 140 mEq/L (136-145); eGFR For African Americans > 60 (> 60); eGFR For Non-African Americans > 60 (> 60)
[2017-03-24] MEDS: Nicotine 21 MG PATCH.TD24 TD SCH (08:24)
[2017-03-24] MEDS: Baclofen 10 MG TABLET PO SCH ×3 (08:24→21:49)
[2017-03-24] MEDS: Aspirin 325 MG TABLET PO SCH (08:24)
[2017-03-24] MEDS: Artificial Tears SOLN 15 ML BOTTLE LEFT EYE SCH ×4 (08:25→21:49)
--- NOTE | 2017-03-24 13:47 | Internal Med Progress Note ---
Date of Encounter: 03/24/17 Time of Encounter: 13:46 - Assessment and plan (1) CVA (cerebral vascular accident) Current Visit: Yes Status: Acute Assessment and plan: Patient's here for CVA. Left sided facial droop and left-sided weakness. Qualifiers: CVA mechanism: occlusion Precerebral and cerebral artery: posterior cerebral artery Laterality of affected vessel: right Qualified Code(s): I63.531 - Cerebral infarction due to unspecified occlusion or stenosis of right posterior cerebral artery - Time Spent With Patient less than 15 minutes - Subjective Interval history: Mr. Oswald is doing very well. Patient was out practicing car transfers with in the therapists. He is brighter. He is using his wheelchair around with his good side and doing very well. I think were turning the corner in terms of improved - Constitutional Vitals: Temp Pulse Resp BP Pulse Ox 98.3 F 82 18 101/65 94 03/24/17 07:42 03/24/17 07:42 03/24/17 07:42 03/24/17 07:42 03/24/17 07:42 General appearance: Present: A&O X 3, pleasant, no acute distress, answers questions appropriately - Head Head exam: Present: atraumatic, normal inspection, normocephalic - Neck Neck exam general surgery: Present: supple, trachea midline. Absent: lymphadenopathy - Respiratory Respiratory exam: Present: CTAB. Absent: accessory muscle use, rales, rhonchi, wheezes - Cardiovascular Cardiovascular exam: Present: RRR, +S1, +S2. Absent: diastolic murmur, gallop, rubs, systolic murmur Internal Medicine: Result - Labs CBC & Chem 7: 03/24/17 05:20 03/24/17 05:20 Labs: Short CBC 03/24/17 Range/Units 05:20 WBC 9.9 (4.3-11.1) K/mcL Hgb 14.3 (12.9-16.9) g/dL Hct 41.5 (37.5-50.1) % Plt Count 263 (140-400) K/mcL Neutrophils # 6.6 (1.6-8.9) K/mcL BMP 03/24/17 05:20 Sodium 140 Potassium 4.1 Chloride 106 Carbon Dioxide 26 BUN 22 Creatinine 1.00 Glucose 90 Calcium 9.4 Labs stable labs stable - ABG Interpretation ABG results: PT/INR, D-dimer PT 11.8 Seconds (9.4-12.1) 03/24/17 05:20 Consult Discharge Plan - Plan Referrals: Edwina Lopez, DATA MANAGEMENT [Primary Care Provider] -
[2017-03-24] MEDS: NIFEdipine XL (24 HR) 30 MG TAB.ER.24 PO SCH (21:47)
[2017-03-25] MEDS: *HR* Enoxaparin 40 MG/0.4 ML SYRINGE SQ SCH (05:28)
[2017-03-25] MEDS: Aspirin 325 MG TABLET PO SCH (08:23)
[2017-03-25] MEDS: Baclofen 10 MG TABLET PO SCH ×3 (08:24→21:15)
[2017-03-25] MEDS: Artificial Tears SOLN 15 ML BOTTLE LEFT EYE SCH ×4 (08:25→21:10)
[2017-03-25] MEDS: Nicotine 21 MG PATCH.TD24 TD SCH (08:25)
--- NOTE | 2017-03-25 13:42 | Internal Med Progress Note ---
Date of Encounter: 03/25/17 Time of Encounter: 13:40 - Assessment and plan (1) CVA (cerebral vascular accident) Current Visit: Yes Status: Acute Qualifiers: CVA mechanism: occlusion Precerebral and cerebral artery: posterior cerebral artery Laterality of affected vessel: right Qualified Code(s): I63.531 - Cerebral infarction due to unspecified occlusion or stenosis of right posterior cerebral artery - Subjective Interval history: Patient actually looks prior to me each day and look around better overall improvement - Constitutional Vitals: Temp Pulse Resp BP Pulse Ox 98.6 F 68 15 189/86 97 03/25/17 07:00 03/25/17 07:00 03/25/17 07:00 03/25/17 07:00 03/25/17 07:00 General appearance: Present: A&O X 3, pleasant, no acute distress, answers questions appropriately - Head Head exam: Present: atraumatic, normal inspection, normocephalic - Neck Neck exam general surgery: Present: supple, trachea midline. Absent: lymphadenopathy - Respiratory Respiratory exam: Present: CTAB. Absent: accessory muscle use, rales, rhonchi, wheezes - Cardiovascular Cardiovascular exam: Present: RRR, +S1, +S2. Absent: diastolic murmur, gallop, rubs, systolic murmur Internal Medicine: Result - Labs CBC & Chem 7: 03/24/17 05:20 03/24/17 05:20 - ABG Interpretation ABG results: PT/INR, D-dimer PT 11.8 Seconds (9.4-12.1) 03/24/17 05:20 Consult Discharge Plan - Plan Referrals: Edwina Lopez RACKET STRINGER [Primary Care Provider] -
[2017-03-25] MEDS: NIFEdipine XL (24 HR) 30 MG TAB.ER.24 PO SCH (21:14)
[2017-03-26] MEDS: *HR* Enoxaparin 40 MG/0.4 ML SYRINGE SQ SCH (04:55)
[2017-03-26] MEDS: Aspirin 325 MG TABLET PO SCH (07:59)
[2017-03-26] MEDS: Baclofen 10 MG TABLET PO SCH ×3 (07:59→20:11)
[2017-03-26] MEDS: Artificial Tears SOLN 15 ML BOTTLE LEFT EYE SCH ×4 (08:03→20:10)
[2017-03-26] MEDS: Nicotine 21 MG PATCH.TD24 TD SCH (12:12)
--- NOTE | 2017-03-26 14:11 | Internal Med Progress Note ---
Date of Encounter: 03/26/17 Time of Encounter: 14:09 - Assessment and plan (1) CVA (cerebral vascular accident) Current Visit: Yes Status: Acute Assessment and plan: Patient see her for significant CVA. Left-sided weakness and left-sided neglect please see updated PT OT TR and speech no. Qualifiers: CVA mechanism: occlusion Precerebral and cerebral artery: posterior cerebral artery Laterality of affected vessel: right Qualified Code(s): I63.531 - Cerebral infarction due to unspecified occlusion or stenosis of right posterior cerebral artery - Time Spent With Patient less than 15 minutes - Subjective Interval history: Patient actually looks prior to me each day and look around better overall improvement - Constitutional Vitals: Temp Pulse Resp BP Pulse Ox 97.5 F L 65 16 153/72 98 03/26/17 07:00 03/26/17 13:02 03/26/17 13:02 03/26/17 13:02 03/26/17 13:02 General appearance: Present: A&O X 3, pleasant, no acute distress, answers questions appropriately - Head Head exam: Present: atraumatic, normal inspection, normocephalic - Neck Neck exam general surgery: Present: supple, trachea midline. Absent: lymphadenopathy - Respiratory Respiratory exam: Present: CTAB. Absent: accessory muscle use, rales, rhonchi, wheezes - Cardiovascular Cardiovascular exam: Present: RRR, +S1, +S2. Absent: diastolic murmur, gallop, rubs, systolic murmur Internal Medicine: Result - Labs CBC & Chem 7: 03/24/17 05:20 03/24/17 05:20 Labs: Lab is stable - ABG Interpretation ABG results: PT/INR, D-dimer PT 11.8 Seconds (9.4-12.1) 03/24/17 05:20 Consult Discharge Plan - Plan Referrals: Edwina Lopez CHISEL GRINDER [Primary Care Provider] -
[2017-03-26] MEDS: NIFEdipine XL (24 HR) 30 MG TAB.ER.24 PO SCH (20:11)
[2017-03-27] MEDS: *HR* Enoxaparin 40 MG/0.4 ML SYRINGE SQ SCH (05:06)
[2017-03-27] MEDS: Aspirin 325 MG TABLET PO SCH (08:59)
[2017-03-27] MEDS: Nicotine 21 MG PATCH.TD24 TD SCH (09:00)
[2017-03-27] MEDS: Artificial Tears SOLN 15 ML BOTTLE LEFT EYE SCH ×4 (09:00→19:54)
[2017-03-27] MEDS: Baclofen 10 MG TABLET PO SCH ×3 (09:00→19:54)
[2017-03-27] MEDS: NIFEdipine XL (24 HR) 30 MG TAB.ER.24 PO SCH (19:54)
[2017-03-28] MEDS: *HR* Enoxaparin 40 MG/0.4 ML SYRINGE SQ SCH (06:33)
[2017-03-28] MEDS: Aspirin 325 MG TABLET PO SCH (08:04)
[2017-03-28] MEDS: Baclofen 10 MG TABLET PO SCH ×3 (08:04→21:09)
[2017-03-28] MEDS: Nicotine 21 MG PATCH.TD24 TD SCH (08:04)
[2017-03-28] MEDS: Artificial Tears SOLN 15 ML BOTTLE LEFT EYE SCH ×4 (08:22→21:08)
[2017-03-28] MEDS: NIFEdipine XL (24 HR) 30 MG TAB.ER.24 PO SCH (21:09)
--- NOTE | 2017-03-28 23:21 | Internal Med Progress Note ---
Date of Encounter: 03/28/17 Time of Encounter: 23:19 - Assessment and plan (1) CVA (cerebral vascular accident) Current Visit: Yes Status: Acute Assessment and plan: PT T working on transfer, balance and gait. Still highly distractible. Transferring better.we will continue to work on ADLs, left upper extremity strengthening, transfer and left-sided awareness. Qualifiers: CVA mechanism: occlusion Precerebral and cerebral artery: posterior cerebral artery Laterality of affected vessel: right Qualified Code(s): I63.531 - Cerebral infarction due to unspecified occlusion or stenosis of right posterior cerebral artery (2) HTN (hypertension) Current Visit: Yes Status: Chronic Assessment and plan: BP 179/78 this morning. Will increase lisinopril to 20 mg a day. Qualifiers: Hypertension type: unspecified secondary hypertension Qualified Code(s): I15.9 - Secondary hypertension, unspecified; I15 - Secondary hypertension - Subjective Interval history: Feeling better today. Feels as though he is getting stronger. Same left-sided weakness. No headache. No shortness of breath. No chest pain. No nausea vomiting abdominal pain. - Constitutional Vitals: Temp Pulse Resp BP Pulse Ox 97.9 F 65 16 136/83 96 03/28/17 20:04 03/28/17 20:04 03/28/17 20:04 03/28/17 20:04 03/28/17 20:04 General appearance: Present: A&O X 3, pleasant, no acute distress, answers questions appropriately - Respiratory Respiratory exam: Present: CTAB. Absent: accessory muscle use, rales, rhonchi, wheezes - Cardiovascular Cardiovascular exam: Present: RRR, +S1, +S2. Absent: diastolic murmur, gallop, rubs, systolic murmur - GI/Abdominal GI/Abdominal exam: Present: normal bowel sounds, soft, no peritoneal signs. Absent: distended, tenderness Internal Medicine: Result - Labs CBC & Chem 7: 03/24/17 05:20 03/24/17 05:20 - ABG Interpretation ABG results: PT/INR, D-dimer PT 11.8 Seconds (9.4-12.1) 03/24/17 05:20 Consult Discharge Plan - Plan Referrals: Edwina Lopez, AIRCRAFT DESIGNER [Primary Care Provider] -
[2017-03-29] MEDS: *HR* Enoxaparin 40 MG/0.4 ML SYRINGE SQ SCH (05:36)
[2017-03-29] MEDS: Nicotine 21 MG PATCH.TD24 TD SCH (09:06)
[2017-03-29] MEDS: Acetaminophen 325 MG TABLET PO PRN (09:07)
[2017-03-29] MEDS: Aspirin 325 MG TABLET PO SCH (09:07)
[2017-03-29] MEDS: Baclofen 10 MG TABLET PO SCH ×3 (09:07→20:52)
[2017-03-29] MEDS: Artificial Tears SOLN 15 ML BOTTLE LEFT EYE SCH ×4 (09:10→20:51)
[2017-03-29] MEDS: Lisinopril 20 MG TABLET PO SCH (09:15)
--- NOTE | 2017-03-29 09:21 | Internal Med Progress Note ---
Date of Encounter: 03/29/17 Time of Encounter: 09:20 - Assessment and plan (1) CVA (cerebral vascular accident) Current Visit: Yes Status: Acute Assessment and plan: PT T working on transfer, balance and gait. Still highly distractible. Transferring better.we will continue to work on ADLs, left upper extremity strengthening, transfer and left-sided awareness. Qualifiers: CVA mechanism: occlusion Precerebral and cerebral artery: posterior cerebral artery Laterality of affected vessel: right Qualified Code(s): I63.531 - Cerebral infarction due to unspecified occlusion or stenosis of right posterior cerebral artery (2) HTN (hypertension) Current Visit: Yes Status: Chronic Assessment and plan: BP 179/78 this morning. Will increase lisinopril to 20 mg a day. Qualifiers: Hypertension type: unspecified secondary hypertension Qualified Code(s): I15.9 - Secondary hypertension, unspecified; I15 - Secondary hypertension - Time Spent With Patient less than 15 minutes - Subjective Interval history: Feeling better today. Feels as though he is getting stronger. Same left-sided weakness. No headache. No shortness of breath. No chest pain. No nausea vomiting abdominal pain. - Constitutional Vitals: Temp Pulse Resp BP Pulse Ox 98.8 F 57 16 142/73 94 03/29/17 07:08 03/29/17 07:08 03/29/17 07:08 03/29/17 07:08 03/29/17 07:08 General appearance: Present: A&O X 3, pleasant, no acute distress, answers questions appropriately - Respiratory Respiratory exam: Present: CTAB. Absent: accessory muscle use, rales, rhonchi, wheezes - Cardiovascular Cardiovascular exam: Present: RRR, +S1, +S2. Absent: diastolic murmur, gallop, rubs, systolic murmur - GI/Abdominal GI/Abdominal exam: Present: normal bowel sounds, soft, no peritoneal signs. Absent: distended, tenderness - Neurological Exam Neurological exam: Present: abnormal gait, oriented X3, facial droop (Same left- sided weakness.) Internal Medicine: Result - Labs CBC & Chem 7: 03/24/17 05:20 03/24/17 05:20 - ABG Interpretation ABG results: PT/INR, D-dimer PT 11.8 Seconds (9.4-12.1) 03/24/17 05:20 Consult Discharge Plan - Plan Referrals: Edwina Lopez, TAVARES [Primary Care Provider] -
[2017-03-29] MEDS: NIFEdipine XL (24 HR) 30 MG TAB.ER.24 PO SCH (20:51)
[2017-03-30] MEDS: *HR* Enoxaparin 40 MG/0.4 ML SYRINGE SQ SCH (04:56)
[2017-03-30] MEDS: Artificial Tears SOLN 15 ML BOTTLE LEFT EYE SCH ×4 (07:57→19:51)
[2017-03-30] MEDS: Aspirin 325 MG TABLET PO SCH (07:57)
[2017-03-30] MEDS: Lisinopril 20 MG TABLET PO SCH (07:57)
[2017-03-30] MEDS: Baclofen 10 MG TABLET PO SCH ×3 (07:57→19:51)
[2017-03-30] MEDS: Nicotine 21 MG PATCH.TD24 TD SCH (07:58)
[2017-03-30] MEDS: NIFEdipine XL (24 HR) 30 MG TAB.ER.24 PO SCH (19:51)
[2017-03-31] MEDS: *HR* Enoxaparin 40 MG/0.4 ML SYRINGE SQ SCH (05:09)
[2017-03-31 05:22] LABS: INR 1.1; Prothrombin Time 11.4 Seconds (9.4-12.1)
[2017-03-31 05:24] LABS: Activated Partial Thrombo Time 33.8 Seconds (26.0-36.0)
[2017-03-31 05:25] LABS: Basophils # 0.1 K/mcL (0.0-0.2); Basophils % 0.8 %; Eosinophils # 0.3 K/mcL (0.0-0.6); Eosinophils % 3.6 %; Hematocrit 42.8 % (37.5-50.1); Hemoglobin 14.6 g/dL (12.9-16.9); Immature Granulocytes % 0.3 % (0-4); Lymphocytes # 2.3 K/mcL (0.6-4.6); Lymphocytes % 25.1 %; Mean Corpuscular HGB Conc 34.1 g/dL (31.6-35.5); Mean Corpuscular Hemoglobin 27.8 pg (28.0-33.3); Mean Corpuscular Volume 81.4 fL (83.0-100.0); Mean Platelet Volume 10.8 fL (9.4-12.4); Monocytes # 0.9 K/mcL (0.0-1.3); Monocytes % 10.4 %; Neutrophils # 5.4 K/mcL (1.6-8.9); Platelet Count 220 K/mcL (140-400); Red Blood Count 5.26 M/mcL (4.19-5.50); Segmented Neutrophils % 59.8 %
[2017-03-31 05:33] LABS: BUN/Creatinine Ratio 15 (6-26); Blood Urea Nitrogen 15 mg/dL (8-26); Calcium 9.7 mg/dL (8.6-10.8); Carbon Dioxide 26 mEq/L (19-29); Chloride 105 mEq/L (98-109); Glucose 88 mg/dL (70-99); Osmolality,Calculated 292 (280-300); Potassium 4.4 mEq/L (3.5-4.5); Sodium 141 mEq/L (136-145); eGFR For African Americans > 60 (> 60); eGFR For Non-African Americans > 60 (> 60)
[2017-03-31] MEDS: Aspirin 325 MG TABLET PO SCH (09:32)
[2017-03-31] MEDS: Nicotine 21 MG PATCH.TD24 TD SCH (09:33)
[2017-03-31] MEDS: Baclofen 10 MG TABLET PO SCH ×3 (09:33→20:08)
[2017-03-31] MEDS: Lisinopril 20 MG TABLET PO SCH (09:33)
[2017-03-31] MEDS: Artificial Tears SOLN 15 ML BOTTLE LEFT EYE SCH ×4 (09:34→20:17)
--- NOTE | 2017-03-31 11:24 | Internal Med Progress Note ---
Date of Encounter: 03/31/17 Time of Encounter: 11:23 - Assessment and plan (1) CVA (cerebral vascular accident) Current Visit: Yes Status: Acute Assessment and plan: PT T working on transfer, balance and gait. Still highly distractible. Transferring better.we will continue to work on ADLs, left upper extremity strengthening, transfer and left-sided awareness. Qualifiers: CVA mechanism: occlusion Precerebral and cerebral artery: posterior cerebral artery Laterality of affected vessel: right Qualified Code(s): I63.531 - Cerebral infarction due to unspecified occlusion or stenosis of right posterior cerebral artery (2) HTN (hypertension) Current Visit: Yes Status: Chronic Assessment and plan: BP 179/78 this morning. Will increase lisinopril to 20 mg a day. Qualifiers: Hypertension type: unspecified secondary hypertension Qualified Code(s): I15.9 - Secondary hypertension, unspecified; I15 - Secondary hypertension - Time Spent With Patient less than 15 minutes - Subjective Interval history: Feeling better today. Feels as though he is getting stronger. Same left-sided weakness. No headache. No shortness of breath. No chest pain. No nausea vomiting abdominal pain. - Constitutional Vitals: Temp Pulse Resp BP Pulse Ox 97.9 F 68 16 167/92 98 03/31/17 07:00 03/31/17 07:00 03/31/17 07:00 03/31/17 07:00 03/31/17 07:00 General appearance: Present: A&O X 3, pleasant, no acute distress, answers questions appropriately - Respiratory Respiratory exam: Present: CTAB. Absent: accessory muscle use, rales, rhonchi, wheezes - Cardiovascular Cardiovascular exam: Present: RRR, +S1, +S2. Absent: diastolic murmur, gallop, rubs, systolic murmur - GI/Abdominal GI/Abdominal exam: Present: normal bowel sounds, soft, no peritoneal signs. Absent: distended, tenderness Internal Medicine: Result - Labs CBC & Chem 7: 03/31/17 05:15 03/31/17 05:15 Labs: Short CBC 03/31/17 Range/Units 05:15 WBC 9.1 (4.3-11.1) K/mcL Hgb 14.6 (12.9-16.9) g/dL Hct 42.8 (37.5-50.1) % Plt Count 220 (140-400) K/mcL Neutrophils # 5.4 (1.6-8.9) K/mcL BMP 03/31/17 05:15 Sodium 141 Potassium 4.4 Chloride 105 Carbon Dioxide 26 BUN 15 Creatinine 1.00 Glucose 88 Calcium 9.7 - ABG Interpretation ABG results: PT/INR, D-dimer PT 11.4 Seconds (9.4-12.1) 03/31/17 05:15 Consult Discharge Plan - Plan Referrals: Edwina Lopez, SUPERVISOR IN [employer] TESTING [Primary Care Provider] -
[2017-03-31] MEDS: Acetaminophen 325 MG TABLET PO PRN (17:51)
[2017-03-31] MEDS: NIFEdipine XL (24 HR) 30 MG TAB.ER.24 PO SCH (20:08)
[2017-04-01] MEDS: *HR* Enoxaparin 40 MG/0.4 ML SYRINGE SQ SCH (05:35)
[2017-04-01] MEDS: Acetaminophen 325 MG TABLET PO PRN ×2 (08:13→19:54)
[2017-04-01] MEDS: Aspirin 325 MG TABLET PO SCH (08:13)
[2017-04-01] MEDS: Baclofen 10 MG TABLET PO SCH ×3 (08:13→19:50)
[2017-04-01] MEDS: Lisinopril 20 MG TABLET PO SCH (08:14)
[2017-04-01] MEDS: Nicotine 21 MG PATCH.TD24 TD SCH (08:15)
[2017-04-01] MEDS: Artificial Tears SOLN 15 ML BOTTLE LEFT EYE SCH ×4 (08:16→19:58)
--- NOTE | 2017-04-01 09:34 | Internal Med Progress Note ---
Date of Encounter: 04/01/17 Time of Encounter: 09:34 - Assessment and plan (1) CVA (cerebral vascular accident) Current Visit: Yes Status: Acute Assessment and plan: PT T working on transfer, balance and gait. Still highly distractible. Transferring better.we will continue to work on ADLs, left upper extremity strengthening, transfer and left-sided awareness. Qualifiers: CVA mechanism: occlusion Precerebral and cerebral artery: posterior cerebral artery Laterality of affected vessel: right Qualified Code(s): I63.531 - Cerebral infarction due to unspecified occlusion or stenosis of right posterior cerebral artery (2) HTN (hypertension) Current Visit: Yes Status: Chronic Assessment and plan: BP 179/78 this morning. Will increase lisinopril to 20 mg a day. Qualifiers: Hypertension type: unspecified secondary hypertension Qualified Code(s): I15.9 - Secondary hypertension, unspecified; I15 - Secondary hypertension - Subjective Interval history: Feeling better today. Feels as though he is getting stronger. Same left-sided weakness. No headache. No shortness of breath. No chest pain. No nausea vomiting abdominal pain. - Constitutional Vitals: Temp Pulse Resp BP Pulse Ox 98.1 F 73 16 181/93 95 04/01/17 07:39 04/01/17 07:39 04/01/17 07:39 04/01/17 07:39 04/01/17 07:39 General appearance: Present: A&O X 3, pleasant, no acute distress, answers questions appropriately - Respiratory Respiratory exam: Present: CTAB. Absent: accessory muscle use, rales, rhonchi, wheezes - Cardiovascular Cardiovascular exam: Present: RRR, +S1, +S2. Absent: diastolic murmur, gallop, rubs, systolic murmur Internal Medicine: Result - Labs CBC & Chem 7: 03/31/17 05:15 03/31/17 05:15 - ABG Interpretation ABG results: PT/INR, D-dimer PT 11.4 Seconds (9.4-12.1) 03/31/17 05:15 Consult Discharge Plan - Plan Referrals: Edwina Lopez, RN FLIGHT [Primary Care Provider] -
[2017-04-01] MEDS: NIFEdipine XL (24 HR) 30 MG TAB.ER.24 PO SCH (19:52)
[2017-04-02] MEDS: *HR* Enoxaparin 40 MG/0.4 ML SYRINGE SQ SCH (05:10)
[2017-04-02] MEDS: Nicotine 21 MG PATCH.TD24 TD SCH (10:14)
[2017-04-02] MEDS: Artificial Tears SOLN 15 ML BOTTLE LEFT EYE SCH ×4 (10:15→21:18)
[2017-04-02] MEDS: Lisinopril 20 MG TABLET PO SCH (10:15)
[2017-04-02] MEDS: Baclofen 10 MG TABLET PO SCH ×3 (10:15→19:52)
[2017-04-02] MEDS: Aspirin 325 MG TABLET PO SCH (10:15)
--- NOTE | 2017-04-02 11:04 | Internal Med Progress Note ---
Date of Encounter: 04/02/17 Time of Encounter: 11:02 - Assessment and plan (1) CVA (cerebral vascular accident) Current Visit: Yes Status: Acute Assessment and plan: CVA working with PT OT TR and speech. He is improved considerably since admission Qualifiers: CVA mechanism: occlusion Precerebral and cerebral artery: posterior cerebral artery Laterality of affected vessel: right Qualified Code(s): I63.531 - Cerebral infarction due to unspecified occlusion or stenosis of right posterior cerebral artery - Subjective Interval history: wheeling in about [place]ato. working on attention to left side. - Constitutional Vitals: Temp Pulse Resp BP Pulse Ox 98.1 F 65 16 146/83 96 04/02/17 07:59 04/02/17 07:59 04/01/17 19:26 04/02/17 07:59 04/02/17 07:59 General appearance: Present: A&O X 3, pleasant, no acute distress, answers questions appropriately - Head Head exam: Present: atraumatic, normal inspection, normocephalic - Neck Neck exam general surgery: Present: supple, trachea midline. Absent: lymphadenopathy - Respiratory Respiratory exam: Present: CTAB. Absent: accessory muscle use, rales, rhonchi, wheezes - Cardiovascular Cardiovascular exam: Present: RRR, +S1, +S2. Absent: diastolic murmur, gallop, rubs, systolic murmur Internal Medicine: Result - Labs CBC & Chem 7: 03/31/17 05:15 03/31/17 05:15 Labs: lab ok - ABG Interpretation ABG results: PT/INR, D-dimer PT 11.4 Seconds (9.4-12.1) 03/31/17 05:15 Consult Discharge Plan - Plan Referrals: Edwina Lopez, SECOND BALLER [Primary Care Provider] -
--- NOTE | 2017-04-02 12:21 | Physical Med Progress Note ---
Date of Encounter: 04/02/17 Time of Encounter: 12:17 Assessment and Plan (1) CVA (cerebral vascular accident) Current Visit: Yes Status: Acute Qualifiers: CVA mechanism: occlusion Precerebral and cerebral artery: posterior cerebral artery Laterality of affected vessel: right Qualified Code(s): I63.531 - Cerebral infarction due to unspecified occlusion or stenosis of right posterior cerebral artery Physical Medicine-PN: Subj Interval history: PMR PCC Note Patient will undergo home safety visit prior to discharge. Patient had CRE last week with in attendance. His has been helping with transfers. Working on toilet transfers. Will continue to work on educating on proper body mechanics. Plan for discharge to home on 04/04/17. - Constitutional Vitals: Vital Signs Temp Pulse Resp BP Pulse Ox 04/02/17 07:59 98.1 F 65 146/83 96 04/01/17 19:26 98.6 F 80 16 107/60 94 Intake and Output 04/01/17 04/02/17 04/02/17 23:59 07:59 15:59 Intake Total 400 / 400 360 / 360 Balance 400 / 400 360 / 360 Intake: Oral 400 / 400 360 / 360 Other: Meal Dinner Breakfast Percent of Meal Consumed 100% 100% # Urine Diapers 1 Physical Medicine-PN: Obj Data - Labs CBC & Chem 7: 03/31/17 05:15 03/31/17 05:15 - ABG Interpretation ABG results: PT/INR, D-dimer PT 11.4 Seconds (9.4-12.1) 03/31/17 05:15 Consult Discharge Plan - Plan Referrals: Edwina Lopez DOBIE WORKER [Primary Care Provider] -
[2017-04-02] MEDS: NIFEdipine XL (24 HR) 30 MG TAB.ER.24 PO SCH (19:50)
[2017-04-03] MEDS: *HR* Enoxaparin 40 MG/0.4 ML SYRINGE SQ SCH (05:03)
[2017-04-03] MEDS: Lisinopril 20 MG TABLET PO SCH (08:19)
[2017-04-03] MEDS: Nicotine 21 MG PATCH.TD24 TD SCH (08:19)
[2017-04-03] MEDS: Aspirin 325 MG TABLET PO SCH (08:19)
[2017-04-03] MEDS: Artificial Tears SOLN 15 ML BOTTLE LEFT EYE SCH ×4 (08:19→20:57)
[2017-04-03] MEDS: Baclofen 10 MG TABLET PO SCH ×3 (08:19→21:01)
--- NOTE | 2017-04-03 13:45 | Internal Med Progress Note ---
Date of Encounter: 04/03/17 Time of Encounter: 13:43 - Assessment and plan (1) CVA (cerebral vascular accident) Current Visit: Yes Status: Acute Assessment and plan: Patient's working with all modalities of service. Including speech. He is much brighter he is very alert joking with staff and he still being trained to look to the left and taken all areas of his surroundings. Qualifiers: CVA mechanism: occlusion Precerebral and cerebral artery: posterior cerebral artery Laterality of affected vessel: right Qualified Code(s): I63.531 - Cerebral infarction due to unspecified occlusion or stenosis of right posterior cerebral artery - Time Spent With Patient less than 15 minutes - Subjective Interval history: very alert.joking with the staff. - Constitutional Vitals: Temp Pulse Resp BP Pulse Ox 98.1 F 73 16 162/82 94 04/03/17 06:59 04/03/17 06:59 04/03/17 06:59 04/03/17 06:59 04/03/17 06:59 General appearance: Present: A&O X 3, pleasant, no acute distress, answers questions appropriately - Head Head exam: Present: atraumatic, normocephalic - Neck Neck exam general surgery: Present: supple, trachea midline. Absent: lymphadenopathy - Respiratory Respiratory exam: Present: CTAB. Absent: accessory muscle use, rales, rhonchi, wheezes - Cardiovascular Cardiovascular exam: Present: RRR, +S1, +S2. Absent: diastolic murmur, gallop, rubs, systolic murmur Internal Medicine: Result - Labs CBC & Chem 7: 03/31/17 05:15 03/31/17 05:15 Labs: Labs stable - ABG Interpretation ABG results: PT/INR, D-dimer PT 11.4 Seconds (9.4-12.1) 03/31/17 05:15 Consult Discharge Plan - Plan Referrals: Edwina Lopez BLANKER PRESS OPERATOR [Primary Care Provider] -
[2017-04-03] MEDS: NIFEdipine XL (24 HR) 30 MG TAB.ER.24 PO SCH (20:58)
[2017-04-04] MEDS: *HR* Enoxaparin 40 MG/0.4 ML SYRINGE SQ SCH (06:19)
[2017-04-04 06:46] VITALS: BP 159/81
[2017-04-04] MEDS: Lisinopril 20 MG TABLET PO SCH (08:31)
[2017-04-04] MEDS: Artificial Tears SOLN 15 ML BOTTLE LEFT EYE SCH ×2 (08:31→12:14)
[2017-04-04] MEDS: Baclofen 10 MG TABLET PO SCH (08:31)
[2017-04-04] MEDS: Nicotine 21 MG PATCH.TD24 TD SCH (08:31)
[2017-04-04] MEDS: Aspirin 325 MG TABLET PO SCH (08:31)
--- NOTE | 2017-04-04 12:10 | Discharge Summary ---
Date of Encounter: 04/04/17 Time of Encounter: 12:06 - Discharge Diagnosis (1) CVA (cerebral vascular accident) Priority: Primary Status: Acute Comments: Patient is done well will be going home now and continue therapy Qualifiers: CVA mechanism: occlusion Precerebral and cerebral artery: posterior cerebral artery Laterality of affected vessel: right Qualified Code(s): I63.531 - Cerebral infarction due to unspecified occlusion or stenosis of right posterior cerebral artery - Discharge Medications Prescriptions: hydrALAZINE [HydrALAZINE] 25 mg PO Q8HR #30 tablet Atorvastatin [Lipitor] 40 mg PO HS #30 tablet Baclofen [Lioresal] 5 mg PO TID #90 tablet Citalopram [CeleXA] 10 mg PO DAILY #30 tablet Lisinopril [Zestril] 20 mg PO DAILY #30 tablet NIFEdipine XL (24 HR) [Procardia XL] 60 mg PO HS #30 tab.er.24 Home Medications: Aspirin [Lo-Dose Aspirin EC] 81 mg PO DAILY 12/15/16 [History] Atorvastatin [Lipitor] 40 mg PO HS #30 tablet 04/04/17 [Rx] Baclofen [Lioresal] 5 mg PO TID #90 tablet 04/04/17 [Rx] Citalopram [CeleXA] 10 mg PO DAILY #30 tablet 04/04/17 [Rx] Lisinopril [Zestril] 20 mg PO DAILY #30 tablet 04/04/17 [Rx] NIFEdipine XL (24 HR) [Procardia XL] 60 mg PO HS #30 tab.er.24 04/04/17 [Rx] hydrALAZINE [HydrALAZINE] 25 mg PO Q8HR #30 tablet 04/04/17 [Rx] Allergies/Adverse Reactions: Allergies hydrochlorothiazide Allergy (Verified 12/15/16 23:14) Fatigued dizzy Date of admission: 03/05/17 14:52 Primary care physician: Edwina Lopez CNP Consults: 03/05/17 15:56 Consult to Occupational Therapy [CONS] Routine Comment: Evaluate, develop and implement POC Reason for Consult: cva Consult to Physical Therapy [CONS] Routine Comment: Evaluate, develop and implement POC Reason for Consult: cva Consult to Recreational Therapy [CONS] Routine Comment: Evaluate, develop and implement POC Consult to Penetration Tester [CONS] Routine Reason for SW Consult: s/p cva Consult to Speech Therapy [CONS] Routine Comment: Evaluate, develop and implement POC Reason for Consult: s/p cva Call Completed: Yes 03/05/17 16:13 Consult to Physical Medicine/Rehab [CONS] Routine Reason for Consult: cva Call Completed: Yes Consult to Physician [CONS] Routine Consulting Provider: Skylar Ott Reason for Consult: cva Call Completed: Yes Discharging clinician: Lam Overton Anticipated date of discharge: 04/04/17 - Patient Status Disposition: Home, Self-Care Condition: Good Overall status at discharge: patient is not back to baseline - Discharge Instructions Instructions: Ischemic Stroke (DC) Follow Up With: Edwina Lopez CNP [Primary Care Provider] - 04/09/17 4:00 pm - Diet and Activity Activity: as per physical therapy Diet: advance to your usual diet Interval History: Patient has done well he is more alert cooperative genie finding out how to use his left side he still has hemiparesis on the left will continue therapy at home Hospital course: Mr. Oswald is a 77 year old male Patient came in he was lethargic and had a stroke with left hemiparesis. He is much more alert cooperative and choking and this improved considerably. He still has weakness on the left elbow - Time Spent with Patient Total time spent providing and/or coordinating discharge services: Less than 30 minutes - Constitutional Vitals: Temp Pulse Resp BP Pulse Ox 98.3 F 62 16 159/81 96 04/04/17 06:44 04/04/17 06:44 04/04/17 06:44 04/04/17 06:44 04/04/17 06:44 General appearance: Present: A&O X 3, pleasant, no acute distress, answers questions appropriately - Head Head exam: Present: atraumatic, normal inspection, normocephalic - Neck Neck exam general surgery: Present: supple, trachea midline. Absent: lymphadenopathy - Respiratory Respiratory exam: Present: CTAB. Absent: accessory muscle use, rales, rhonchi, wheezes - Cardiovascular Cardiovascular exam: Present: RRR, +S1, +S2. Absent: diastolic murmur, gallop, rubs, systolic murmur - Neurological Exam Neurological exam: Present: CN II-XII intact, motor sensory deficit, oriented X3 , no focal deficits. Absent: pronater drift, facial droop, speech deficit Additional comments: Ill has left hemiparesis and occasionally neglect on the left
--- NOTE | 2017-04-04 13:02 | Physician Discharge Referral ---
Home Health/Hosp Referral Info Transfer to: Home Health Provider in Charge Post Discharge: PCP - Diagnosis (1) CVA (cerebral vascular accident) Priority: Primary Status: Acute - Respiratory Orders Smoking Cessation: Smoking cessation has been advised. For more information, call the [place] Tobacco Quit Line at 4-032-SGZJ-NOW. - Diet/Nutrition Diet/Nutrition Orders: Regular - Activity Activity Orders: Chair - Services Needed Following services are medically necessary services: Nursing, Physical Therapy, Occupational Therapy - Transfer Medications Prescriptions: Baclofen [Lioresal] 5 mg PO TID #90 tablet Citalopram [CeleXA] 10 mg PO DAILY #30 tablet Lisinopril [Zestril] 20 mg PO DAILY #30 tablet NIFEdipine XL (24 HR) [Procardia XL] 60 mg PO HS #30 tab.er.24 Home Medications: Aspirin [Lo-Dose Aspirin EC] 81 mg PO DAILY 12/15/16 [History] Baclofen [Lioresal] 5 mg PO TID #90 tablet 04/04/17 [Rx] Citalopram [CeleXA] 10 mg PO DAILY #30 tablet 04/04/17 [Rx] Lisinopril [Zestril] 20 mg PO DAILY #30 tablet 04/04/17 [Rx] NIFEdipine XL (24 HR) [Procardia XL] 60 mg PO HS #30 tab.er.24 04/04/17 [Rx] Allergies/Adverse Reactions: Allergies hydrochlorothiazide Allergy (Verified 12/15/16 23:14) Fatigued dizzy Certification: Further, I certify that my clinical findings support that this patient is homebound (i.e. absences from home require considerable and taxing effort and are for medical reasons or pentecostal services or infrequently or short duration when for other reasons) because: Homebound Reason: Leaving home requires considerable and taxing effort due to condition Attestation: My signature below is to certify that this patient is under my care and that I, or nurse practitioner, or a physician's assistant store manager operations working with me, has a face-to -face encounter with this patient.
== END 2017-04-04 14:35 | disposition home health service (06) | DRG 56 ==
LOC: INPGRE 14:52
PROVIDERS: ADMIT Internal Medicine; ATTEND Internal Medicine